=== PATIENT | female | born 2000 | race Caucasian/White ===

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

== ENCOUNTER 2021-05-26 00:42 | Emergency (ER) | payer OTHER ==
[~2021-05-26] VITALS: Ht 160 cm; Wt 101.0 kg
[2021-05-26] MEDS ORDERED: TYLENOL EXTRA500 MG PO (01:25)
[2021-05-26] MEDS ORDERED: BACTRIM DS TAB1 EACH PO (02:21)
[2021-05-26] MEDS ORDERED: CEPHALEXIN500 MG PO (02:21)
[2021-05-28] MEDS ORDERED: CEPHALEXIN500 MG PO (07:28)
[2021-05-28] MEDS ORDERED: SULFAMETHOXAZO1 EAC1 PO (07:31)
== END 2021-05-26 02:50 | disposition home or self-care (01) ==
LOC: ED 00:42
PROC: 0H9HXZZ Drainage of Right Upper Leg Skin, External Approach (ICD-10-PCS; principal; 2021-05-26)
DX: L02.415 Cutaneous abscess of right lower limb (principal); L03.115 Cellulitis of right lower limb
CPT/HCPCS: 10060; 99283-25

== ENCOUNTER 2021-10-06 22:55 | Emergency (ER) | payer OTHER ==
[~2021-10-06] VITALS: Ht 160 cm; Wt 101.0 kg
[~2021-10-06 22:55] MED LIST changes: +BACTRIM DS TAB1 EACH PO; +CEPHALEXIN500 MG PO; +SULFAMETHOXAZO1 EAC1 PO; +TYLENOL EXTRA500 MG PO
[2021-10-07] MEDS ORDERED: CYCLOBENZAPRINE10 MG PO (02:27)
== END 2021-10-07 02:35 | disposition home or self-care (01) ==
LOC: ED 22:55
DX: M54.41 Lumbago with sciatica, right side (principal); G47.30 Sleep apnea, unspecified; G47.00 Insomnia, unspecified; Z88.1 Allergy status to other antibiotic agents
CPT/HCPCS: 99283

== ENCOUNTER 2022-03-28 01:42 | Emergency (ER) | payer OTHER ==
[~2022-03-28] VITALS: Ht 160 cm; Wt 103.4 kg
[~2022-03-28 01:42] MED LIST changes: +CYCLOBENZAPRINE10 MG PO
[2022-03-28] MEDS ORDERED: UNISOM SLEEP AI25 MG PO (03:43)
== END 2022-03-28 03:59 | disposition home or self-care (01) ==
LOC: ED 01:42
DX: U07.1 COVID-19 (principal); G47.30 Sleep apnea, unspecified; G47.00 Insomnia, unspecified; Z88.1 Allergy status to other antibiotic agents; Z79.899 Other long term (current) drug therapy
CPT/HCPCS: 36415; 80053; 81001; 85025; 99283

== ENCOUNTER 2022-07-11 02:02 | Emergency (ER) | payer OTHER ==
[~2022-07-11] VITALS: Ht 160 cm; Wt 117.7 kg
[~2022-07-11 02:02] MED LIST changes: +UNISOM SLEEP AI25 MG PO
[2022-07-11] MEDS ORDERED: PRENATAL MULTI1 EAC3 PO (05:25)
== END 2022-07-11 05:15 | disposition home or self-care (01) ==
LOC: ED 02:02
DX: O9A.213 Injury, poisoning and certain other consequences of external causes complicating pregnancy, third trimester (principal); S60.445A External constriction of left ring finger, initial encounter; Z3A.37 37 weeks gestation of pregnancy; Z88.1 Allergy status to other antibiotic agents; W49.04XA Ring or other jewelry causing external constriction, initial encounter
CPT/HCPCS: 99283

== ENCOUNTER 2022-07-28 11:19 | Inpatient (IN) | payer OTHER ==
[~2022-07-28] VITALS: Ht 160 cm; Wt 117.9 kg
--- NOTE | ~2022-07-28 | OR ---
[facility] [address] [place], [place] [address] Draft DATE OF OPERATION: 07/29/2022 SURGEON: Tyshawn Rodriguez DO PROCEDURE: Primary low-transverse and cystoscopy. PREOPERATIVE DIAGNOSIS: Arrest of dilation. POSTOPERATIVE DIAGNOSES: Term , delivered, arrest of dilation, persistent occiput posterior positioning, uterine extension. ANESTHESIA: Epidural. BLOOD LOSS: 650 mL. QUALITY ASSURANCE SUPERVISOR TRIM: Dr. Juan Lemus. FINDINGS: Normal-appearing uterus, bilateral tubes and ovaries. Viable term male in the straight OP position. INDICATIONS: The patient is a 22-year-old, G1, P0, who has been 6 cm dilated since 23:30 last night. Risks, benefits, and alternatives to primary for arrest of dilation were discussed with the patient and her partner, and they elected to proceed. DESCRIPTION OF PROCEDURE: The patient was taken to the operating room, where she was given 3 g Ancef and 500 mg azithromycin IV. Internal monitors were removed. She was prepped and draped in normal sterile fashion in a supine position with a leftward tilt. Low transverse skin incision was made with a scalpel and carried down to the underlying layer of fascia. Fascia was nicked laterally and extended with Rogers scissors. Inferior margin of fascia was grasped with Mervat's, elevated and underlying rectus muscle was dissected off bluntly and sharply with Rogers scissors. Superior margin of fascia was then grasped and elevated PATIENT NAME: RIBEIRO,STEFANIE AMRITA OPERATIVE REPORT DATE OF : 00 REPORT #: [id number] PHYSICIAN: TYSHAWN RODRIGUEZ DO PCP: JANN POE PA-C REPORT IS CONFIDENTIAL AND NOT TO BE RELEASED WITHOUT AUTHORIZATION [facility] [address] [place], [place] [address] Draft with Mervat clamps. Underlying rectus muscle was dissected off bluntly and sharply with Rogers scissors. Peritoneum was entered bluntly, extended laterally with digital traction. Mike retractor was placed with excellent visualization. Hysterotomy was made with a scalpel just above the vesicouterine reflection. Uterus was entered bluntly, digitally, and head was noted to be well engaged in the pelvis in a direct OP positioning. Difficulty was encountered elevating the baby's head to the hysterotomy, but did elevate without further complication or risk. Cord was immediately doubly clamped and cut and baby was handed to awaiting nursery personnel. Segment of cord was doubly clamped and cut for cord gases. Cord blood was collected for type and Devon. Placenta was manually delivered and uterus was cleared of clots and debris. Significant right extension was noted extending down to the level of the cervix, this was grasped with the apex with an Allis clamp, and then repaired with 0 Vicryl in a running locked fashion with excellent resulting hemostasis. Left apex of the uterus and hysterotomy was then tagged with 0 Vicryl. Hysterotomy was then closed in double-layer closure, 1st with 0 Monocryl in a running locked fashion, 2nd with 0 Monocryl in an imbricating manner. Second layer of closure was completed with 0 Monocryl in an imbricating manner. At this point, oozing was noted at the prior closure of the extension, overlying [id number]-xd-[id number] suture was placed with 0 Monocryl in [id number]-[id number]-xfzhp fashion with significant improvement in bleeding. Tisseel was applied at the apex of the extension with resulting hemostasis. An additional owkjow-zu-fukru suture with 0 Monocryl was placed at the left apex, where a small amount of additional oozing was noted with resulting hemostasis. The pelvis was suction irrigated repeatedly with warm sterile saline and hemostasis was confirmed. Mike retractor was removed. Peritoneum was closed with 2-0 Vicryl in a running fashion. Rectus muscle was reapproximated at midline with 0 Vicryl in a simple interrupted fashion. Rectus muscle was inspected for perforating vessels, which were cauterized with Bovie cautery. Rectus was then suction irrigated with warm sterile saline with resulting hemostasis. Fascia was closed with 0 Vicryl working 1st from right apex to midline in a running fashion, then secondly from left apex to midline in a running fashion meeting in the middle. Subcutaneous layer was inspected for perforating vessels, which were cauterized with Bovie cautery with suction irrigated with warm sterile saline and then reapproximated with 3-0 Vicryl. Skin was closed with sara. Uterus was Crede'd, then attention was turned to perineum. Ash catheter was removed. The patient was given IV fluorescein and flexible cystoscope was introduced. Bilateral ureteral jets were visualized. Bladder dome was noted to be intact with air bubble present. No evidence of suture tucking or other injury to the bladder was seen with spacer or inspection of the bladder. All instrumentation was removed. Uterus was Crede'd and noted to be firm. All sponge and instrument counts were correct. The patient was taken to her labor room in stable and satisfactory condition for further recovery and apti-gg-ohzb time with baby. Of note, during the procedure, the patient also received 1 g of TXA during the time of hysterotomy extension repair. PATIENT NAME: STEFANIE RIBEIRO AMRITA OPERATIVE REPORT DATE OF : 00 REPORT #: [id number] PHYSICIAN: TYSHAWN RORDIGUEZ DO PCP: JANN POE PA-C REPORT IS CONFIDENTIAL AND NOT TO BE RELEASED WITHOUT AUTHORIZATION [address] [place], [place] [address] Draft DO ERIK Avila/MIGUEL /[id number] Copies: ~ PATIENT NAME: STEFANIE RIBEIRO AMRITA OPERATIVE REPORT DATE OF : 00 REPORT #: [id number] PHYSICIAN: TYSHAWN RODRIGUEZ DO PCP: JANN POE PA-C REPORT IS CONFIDENTIAL AND NOT TO BE RELEASED WITHOUT AUTHORIZATION
[~2022-07-28 11:19] MED LIST changes: +PRENATAL MULTI1 EAC3 PO
--- NOTE | 2022-07-28 13:34 | NUR ---
COVID SWAB COLLECTED SENT TO THE LAB
--- NOTE | 2022-07-28 22:11 | PR ---
[facility] [address] [place], [place] [address] Signed Progress Notes IP Datetime Report Generated by THEO: 07/28/2022 22:11 PROGRESS NOTES: [id number] Impression: Non-reassuring Heart Rate Procedures: Epidural Placement Plan: Continue Present Management Informed Consent Obtain: Vaginal Delivery VITAL SIGNS: [id number] Vital Signs: Reviewed; Within Normal Limits EXAM: [id number] Dilatation: 5.0 Effacement: 80 Station: -1 Contractions: Every 1.5-2 min MEMBRANES: [id number] Pooling: Positive Nitrazine: Negative Amniotic Fluid Color: Clear Comments: In room to evaluate strip at around 2130 hours. Patient had just received epidural and there was noted heart rate in the 60s-70s. Called to the room to assess. Patient noted to have systolic BP drop of approximately 20. Lower BP thought to be due to epidural placement. Patient received a total of 2 doses of 10 mg of ephedrine IV approximately 10 minutes apart. Heart rate kiara to baseline of 130s. BP cuff switched to wrist cuff and BP noted to be in the 110s/50s. However baby was maintaining FHR after the two doses of ephedrine. Will continue to monitor. Will start pitocin when able. FETUS A: [id number] FHR Baseline: 125 Variability: Moderate 6-25bpm Accelerations: 15X15 Decelerations: None FHR Category: Category I Presentation: Vertex FETUS B: [id number] Signing Physician: Juan Panda MD *Electronically Signed* 07/28/22 8574 JUAN PANDA MD PATIENT NAME: STEFANIE RIBEIRO AMRITA PROGRESS NOTE DATE OF : 00 PHYSICIAN: JUAN PANDA MD RPT #: [id number] REPORT IS CONFIDENTIAL AND NOT TO BE RELEASED WITHOUT AUTHORIZATION
--- NOTE | 2022-07-28 23:18 | PR ---
[facility] [address] [place], [place] [address] Signed Progress Notes IP Datetime Report Generated by CPN: 07/28/2022 23:18 PROGRESS NOTES: [id number] Impression: Normal Progression of Labor Procedures: Epidural Placement Plan: Continue Present Management; Augmentation Informed Consent Obtain: Vaginal Delivery VITAL SIGNS: [id number] Vital Signs: Reviewed; Within Normal Limits EXAM: [id number] Dilatation: 6.0 Effacement: 70 Station: -1 Contractions: Every 1.5-2 min MEMBRANES: [id number] Pooling: Positive Nitrazine: Negative Amniotic Fluid Color: Clear Comments: S: Patient well. Lying comfortably in bed. O: AFVSS A/P: Patient well. Cook balloon removed. Will begin augmentation with pitocin. Patient to sit in high fowlers position. Will recheck in 2-4 hours and as needed. Will consider placement of internal monitors as needed. FETUS A: [id number] FHR Baseline: 125 Variability: Moderate 6-25bpm Accelerations: 15X15 Decelerations: None FHR Category: Category I Presentation: Vertex FETUS B: [id number] Signing Physician: Tamara Panda MD Copies: ~ *Electronically Signed* 07/28/22 7865 TAMARA PANDA MD PATIENT NAME: STEFANIE RIBEIRO AMRITA PROGRESS NOTE DATE OF : 00 PHYSICIAN: TAMARA PANDA MD RPT #: [id number] REPORT IS CONFIDENTIAL AND NOT TO BE RELEASED WITHOUT AUTHORIZATION
--- NOTE | 2022-07-29 03:29 | PR ---
[facility] [address] [place], [place] [address] Signed Progress Notes IP Datetime Report Generated by THEO: 07/29/2022 03:29 PROGRESS NOTES: [id number] Impression: Normal Progression of Labor Procedures: Intrauterine Pressure Catheter; Scalp Electrode; Sterile Vag Exam Plan: Continue Present Management Informed Consent Obtain: Vaginal Delivery VITAL SIGNS: [id number] Vital Signs: Reviewed; Within Normal Limits EXAM: [id number] Dilatation: 6.0 Effacement: 80 Station: -1 Contractions: Every 1.5-2 min MEMBRANES: [id number] Pooling: Positive Nitrazine: Negative Amniotic Fluid Color: Clear Comments: S: Patient doing well. Resting comfortably in bed. Called to room to evaluate potential late decelerations in the strip. O: AFVSS A/P: Patient well. IUPC and FSE placed. Contractions inadequate. Will continue with increasing pitocin to attempt to achieve MVUs of 200 or greater. FETUS A: [id number] FHR Baseline: 125 Variability: Moderate 6-25bpm Accelerations: 15X15 Decelerations: None FHR Category: Category I Presentation: Vertex FETUS B: [id number] Signing Physician: Juan Panda MD Copies: ~ *Electronically Signed* 07/29/22 0329 JUAN PANDA MD PATIENT NAME: STEFANIE RIBEIRO AMRITA PROGRESS NOTE DATE OF : 00 PHYSICIAN: JUAN PANDA MD RPT #: [id number] REPORT IS CONFIDENTIAL AND NOT TO BE RELEASED WITHOUT AUTHORIZATION
--- NOTE | 2022-07-29 08:06 | PR ---
[facility] [address] [place], [place] [address] Signed Progress Notes IP Datetime Report Generated by CPN: 07/29/2022 08:06 PROGRESS NOTES: [id number] Impression: Reassuring Heart Rate Procedures: Sterile Vag Exam Plan: Continue Present Management Informed Consent Obtain: Vaginal Delivery VITAL SIGNS: [id number] Vital Signs: Reviewed; Within Normal Limits EXAM: [id number] Dilatation: 6.0 Effacement: 80 Station: -1 Contractions: Every 1.5-2 min MEMBRANES: [id number] Pooling: Positive Nitrazine: Negative Amniotic Fluid Color: Clear Comments: S: Patient lying comfortably in bed. Reports chills. O: Afebrile. Maternal tachycardia noted. A/P: Patient well. Discussed lack of cervical change and possibility of need for section for delivery. Baby feels to be asynclytic and pelvis may also be contracted. Recommend NPO at this time in the event of needing to proceed to the OR for a section. Recheck in 2-3 hours and sooner as needed. FETUS A: [id number] FHR Baseline: 125 Variability: Moderate 6-25bpm Accelerations: 15X15 Decelerations: None FHR Category: Category I Presentation: Vertex FETUS B: [id number] Signing Physician: Tamara Panda MD *Electronically Signed* 07/29/22805 TAMARA PANDA MD PATIENT NAME: STEFANIE RIBEIRO AMRITA PROGRESS NOTE DATE OF : 00 PHYSICIAN: TAMARA PANDA MD RPT #: [id number] REPORT IS CONFIDENTIAL AND NOT TO BE RELEASED WITHOUT AUTHORIZATION
--- NOTE | 2022-07-29 11:08 | PR ---
[facility] [address] [place], [place] [address] Signed Progress Notes IP Datetime Report Generated by THEO: 07/29/2022 11:08 PROGRESS NOTES: [id number] Impression: Arrest of Dilatation/Descent Procedures: Sterile Vag Exam Plan: Deliver- Section Informed Consent Obtain: Section Delivery; Risks, Benefits and Alternatives Discussed VITAL SIGNS: [id number] Vital Signs: Reviewed; Within Normal Limits EXAM: [id number] Dilatation: 6.0 Effacement: 80 Station: -1 Contractions: Every 1.5-2 min MEMBRANES: [id number] Pooling: Positive Nitrazine: Negative Amniotic Fluid Color: Clear Comments: S: Patient resting comfortably in bed. No concerns or complaints. O: AF. Maternal tachycardia. SVE: 6/80/-1, unchanged since 2300 hrs A/P: Patient well, Discussed with patient lack of cervical change and descent for approximately 12 hours. As such we discussed proceeding with a primary section for arrest of the first stage. Discussed the R/B/A to include damage to the surrounding structures and organs such as the bowel, bladder, uterus, tubes and ovaries, hemorrhage with need for possible blood transfusion and its associated risks, need for hysterectomy if uterine bleeding can not be controlled, infection, laceration to baby's skin upon entering the uterus, . All questions were answered and she has agreed to proceed with section. Will call team and plan for non emergent section to occur around noon today. FETUS A: [id number] FHR Baseline: 125 Variability: Moderate 6-25bpm Accelerations: 15X15 Decelerations: None FHR Category: Category I Presentation: Vertex *Electronically Signed* 07/29/22 1108 JUAN PANDA MD PATIENT NAME: STEFANIE RIBEIRO AMIRTA PROGRESS NOTE DATE OF : 00 PHYSICIAN: JUAN PANDA MD RPT #: [id number] REPORT IS CONFIDENTIAL AND NOT TO BE RELEASED WITHOUT AUTHORIZATION [address] [address] Signed FETUS B: [id number] Signing Physician: Juan Panda MD Copies: ~ *Electronically Signed* 07/29/22 110 JUAN PANDA MD PATIENT NAME: STEFANIE RIBEIRO AMRITA PROGRESS NOTE DATE OF : 00 PHYSICIAN: JUAN PANDA MD RPT #: [id number] REPORT IS CONFIDENTIAL AND NOT TO BE RELEASED WITHOUT AUTHORIZATION
--- NOTE | 2022-07-29 14:34 | NUR ---
07/29/22 1434 Kasey Ferrell 1405 PT ARRIVED TO ROOM WITH SIGNIFICANT OTHER AT BEDSIDE WITH BABY. PT DENIES PAIN AND NAUSEA. TWO IVS NOTED, ONE IN RIGHT HAND SALINE LOCKED AND ONE IN LEFT MID ARM INFUSING LR, SITE WNL. 1420 PT REPORTS 1/10 PAIN BUT TOLERABLE AT THIS TIME. FUNDAL CHECK DONE WITH FBC RN. BABY TO CHEST WITH FBC RN. 1434 PT RESTING IN BED AND HOB INCREASED SLIGHTLY PT CONTINUES TO DENY CONCERNS.
--- NOTE | 2022-07-30 06:38 | PR ---
[facility] [address] [place], [place] [address] Signed PP Progress Notes Datetime Report Generated by CPN: 07/30/2022 06:38 SUBJECTIVE: [id number] Pain: Within Normal Limits Nausea/Vomiting: Denies Flatus: Yes Bowel Movement: No Vital Signs: [id number] EXAM: Ongoing Abdomen/Uterus: Normal Lochia: Normal Extremities: Normal Incision: Normal Progress: Abnormal Exam Comments: Bandage in place. No bleeding noted through the bandage. Fundus is firm and below umbilicus. Appropriate TTP. IMPRESSION/PLAN/PROCEDURES: [id number] Impression: Normal Progression; Difficulties Plan: Continue Present Management Procedures: None Progress Notes: 22 yo POD 1 s/p primary section for failure to progress. Doing well. Denies EDUARDO, CP, SOB, F/C, N/V, RUQ pain, changes in vision. Reports normal lochia ambulating, tolerating diet, pain controlled, passing gas but no bowel movement. Ash recently removed and has not yet voided on her own. Baby has had some low blood sugar issues and has required treatment. Will continue /postop care. Disposition in house. Possible discharge home tomorrow AM. Signing Physician: Tamara Lemus MD Copies: ~ *Electronically Signed* 07/30/22 0638 TAMARA LEMUS MD PATIENT NAME: STEFANIE RIBEIRO AMRITA PROGRESS NOTE DATE OF : 00 PHYSICIAN: TAMARA LEMUS MD RPT #: [id number] REPORT IS CONFIDENTIAL AND NOT TO BE RELEASED WITHOUT AUTHORIZATION
--- NOTE | 2022-07-31 11:26 | PR ---
[facility] [address] [facility] [place], [place] [address] Signed PP Progress Notes Datetime Report Generated by THEO: 07/31/2022 11:26 SUBJECTIVE: [id number] Pain: Abnormal Nausea/Vomiting: Denies Flatus: Yes Bowel Movement: Yes Vital Signs: [id number] Vital Signs: Reviewed; Within Normal Limits EXAM: Met Abdomen/Uterus: Normal Lochia: Normal Extremities: Normal Incision: Normal Progress: Abnormal Exam Comments: Bandage in place. No bleeding noted through the bandage. Fundus is firm and below umbilicus. Appropriate TTP. IMPRESSION/PLAN/PROCEDURES: [id number] Impression: Normal Progression; Difficulties Plan: Remove Demetra; Discharge Procedures: None Progress Notes: POD # 2. Doing well. Denies EDUARDO, CP, SOB, F/C, N/V, RUQ pain, changes in vision. Normal vaginal bleeding, voiding on her own, ambulating well. She is meeting all hospital milestones and would like to be discharged home today. Will discharge home. Signing Physician: Juan Panda MD Copies: ~ *Electronically Signed* 07/31/22 1126 JUAN PANDA MD PATIENT NAME: STEFANIE RIBEIRO AMRITA PROGRESS NOTE DATE OF : 00 PHYSICIAN: JUAN PANDA MD RPT #: [id number] REPORT IS CONFIDENTIAL AND NOT TO BE RELEASED WITHOUT AUTHORIZATION
== END 2022-07-31 13:45 | disposition home or self-care (01) | DRG 788 ==
LOC: FBCO 11:19 → FBC 12:25 → FBCO 07-30 09:31 → FBC 07-31 13:45
PROVIDERS: ADMIT Obstetrics & Gynecology; ATTEND Obstetrics & Gynecology
PROC: 10H073Z Insertion of Monitoring Electrode into Products of Conception, Via Natural or Artificial Opening (ICD-10-PCS; 2022-07-29)
PROC: 10D00Z1 Extraction of Products of Conception, Low, Open Approach (ICD-10-PCS; principal; 2022-07-29 12:00)
PROC: 10H07YZ Insertion of Other Device into Products of Conception, Via Natural or Artificial Opening (ICD-10-PCS; 2022-07-29 12:00)
DX: O62.1 Secondary uterine inertia (principal); Z37.0 Single live birth; Z20.822 Contact with and (suspected) exposure to COVID-19; Z67.40 Type O blood, Rh positive; Z3A.39 39 weeks gestation of pregnancy
CPT/HCPCS: 01961; 36415; 59025; 82803; 84112; 85027; 86850; 86900; 86901; 87502; A9270; C9803; G0463; J0171; J0456; J0690; J1100; J1885; J2274; J2370; J2405; J2590; J2765; J2795; J3010; J7121; U0003

== ENCOUNTER 2024-05-30 18:52 | Emergency (ER) | payer OTHER ==
[~2024-05-30] VITALS: Ht 157.5 cm; Wt 97.6 kg
[2024-05-30] MEDS ORDERED: MORPHINE SULFATE 4 MG/ML VIAL IV ONE (19:30)
[2024-05-30] MEDS ORDERED: ondansetron HCL 4 MG/2 ML VIAL IV ONE (19:30)
[2024-05-30 19:42] LABS: BASOPHILS 0.6 % (0-2); EOSINOPHILS 2.5 % (0-6); HEMOGLOBIN 13.8 g/dL (12.0-18.0); LYMPHOCYTES 25.8 % (24-44); MCH 30.5 (27-36); MCHC 33.7 g/dl (30-36); MCV 90.5 fl (81-99); MONOCYTES 5.5 % (0-12); NEUTROPHILS 65.6 % (39-80); PLATELET COUNT 165 K/uL (140-440); RBC 4.53 M/ul (4.3-5.7); RDW 12.3 (10.5-15.0)
[2024-05-30 19:56] LABS: ALBUMIN 3.8 g/dL (3.4-5.0); ALBUMIN/GLOBULIN RATIO 1.12 (1.1-2.4); ANION GAP 13.8 (7-21); BILIRUBIN, TOTAL 0.4 ng/dL (0.2-1.0); BUN/CREATININE RATIO 16.66 (6.0-28.6); CALCIUM 9.4 mg/dL (8.5-10.1); CREATININE, SERUM 0.78 mg/dL (0.55-1.02); POTASSIUM 3.8 mmol/L (3.5-5.1); PROTEIN, TOTAL 7.2 g/dL (6.4-8.2)
[2024-05-30] MEDS ORDERED: HYDROCODON-ACE1 EA10 PO (21:07)
[2024-05-30] MEDS ORDERED: HYDROCODONE BIT/ACETAMINOPHEN 5/325 MG 1 TAB HOME.PACK PO ONE (21:15)
[2024-05-30 21:25] VITALS: BP 117/76
== END 2024-05-30 21:26 | disposition home or self-care (01) ==
LOC: ED 18:52
PROVIDERS: Family Medicine
DX: S29.012A Strain of muscle and tendon of back wall of thorax, initial encounter (principal); S39.012A Strain of muscle, fascia and tendon of lower back, initial encounter; S50.02XA Contusion of left elbow, initial encounter; G47.30 Sleep apnea, unspecified; Z88.1 Allergy status to other antibiotic agents; V03.90XA Pedestrian on foot injured in collision with car, pick-up truck or van, unspecified whether traffic or nontraffic accident, initial encounter; Y93.01 Activity, walking, marching and hiking
CPT/HCPCS: 36415; 71260; 72128; 72131; 73080; 74177; 80053; 84703; 85025; 99284-25; A9270; J2270; J2405; Q9967